=== PATIENT | male | born 1955 | race Caucasian/White ===

== ENCOUNTER 2022-01-06 13:15 | Outpatient (CLI) | payer MEDICARE | END 2022-01-06 13:16 | disposition home or self-care (01) | LOC: BICRAD 13:15 | PROVIDERS: ATTEND Internal Medicine | DX: J44.9 Chronic obstructive pulmonary disease, unspecified (principal); R05.9 Cough, unspecified | CPT/HCPCS: 71046 ==

== ENCOUNTER 2022-01-29 11:56 | Inpatient (IN) | payer MEDICARE ==
[2022-01-29] MEDS ORDERED: Diltiazem 125 MG/25 ML ONE (12:28)
[2022-01-29 12:34] LABS: #Basophils 0.1 thou/uL (0.0-0.2); #Eosinphils 0.2 thou/uL (0.0-0.7); #Lymphocytes 2.4 thou/uL (1.20-3.40); #Monocytes 0.9 thou/uL (0.11-0.59); #Neutrophils 5.4 thou/uL (1.40-6.50); %Basophils 1.4 % (0.0-1.0); %Eosinophils 1.7 % (0.0-10.0); %Monocytes 9.9 % (0.0-10.0); Hemoglobin 15.6 g/dL (14.0-18.0); Mean Corpuscular HGB CONC 32.4 g/dL (32.0-36.0); Mean Corpuscular Hemoglobin 34.9 pg (27.0-31.0); Mean Platelet Volume 8.4 fL (7.4-10.4); Platelet Count 234 thou/uL (130-400); Red Blood Cell (RBC) Count 4.47 mill/uL (4.70-6.10)
[2022-01-29 12:56] LABS: Band 1 % (5-11); Eosinophils 2 % (0-10); Lymphocytes 28 % (21-51); MDiff Complete? YES; Monocytes 10 % (0-10); Neutrophil 57 % (42-75); RBC Morphology Normal; Reactive Lymphocytes 1 % (0-10)
[2022-01-29 13:01] LABS: ALT (SGPT) 20 U/L (8-55); AST (SGOT) 20 U/L (5-34); Alkaline Phosphatase 84 U/L (40-110); Anion Gap 11 mmol/L (10-20); BUN (Urea Nitrogen) 12 mg/dL (8.4-25.7); Bilirubin, Total 0.5 mg/dL (0.2-1.2); Calc. Creatinine Clearance 0 mL/min (70-130); Calcium 9.9 mg/dL (7.8-10.44); Carbon Dioxide 25 mmol/L (23-31); Chloride 104 mmol/L (98-107); Globulin 3.1 g/dL (2.4-3.5); Glucose 113 mg/dL (80-115); Potassium 4.1 mmol/L (3.5-5.1); Protein, Total 7.1 g/dL (5.8-8.1); Sodium 136 mmol/L (136-145)
[2022-01-29] MEDS ORDERED: Enoxaparin Sodium 80 MG/0.8 ML SYRINGE ONE (14:33)
[2022-01-29] MEDS ORDERED: Acetaminophen 325 MG TAB PO PRN (17:34)
[2022-01-29] MEDS ORDERED: Diltiazem 125 MG in Sodium Chloride 0.9% 100 ML IVPB SCH (17:45)
[2022-01-29 18:32] LABS: Free T4 (Free Thyroxine) 0.96 ng/dL (0.70-1.48); Thyroid Stimulating Hormone 1.8597 uIU/mL (0.35-4.94)
[2022-01-29 20:24] VITALS: BMI 22.6
[2022-01-29] MEDS ORDERED: Albuterol Sulfate 1.25 MG/3 ML NEB NEB PRN (21:14)
[2022-01-29] MEDS: Tamsulosin HCl 0.4 MG CAP PO SCH (21:51)
[2022-01-29] MEDS: Albuterol Sulfate 1.25 MG/3 ML NEB NEB SCH (23:00)
[2022-01-29] MEDS: Mometasone 200 MCG/Formoterol 5 MCG 120 PUFF INHALER INH SCH (23:00)
[2022-01-30 05:30] LABS: #Basophils 0.1 thou/uL (0.0-0.2); #Eosinphils 0.3 thou/uL (0.0-0.7); #Lymphocytes 3.9 thou/uL (1.20-3.40); #Monocytes 0.9 thou/uL (0.11-0.59); #Neutrophils 5.4 thou/uL (1.40-6.50); %Basophils 1.1 % (0.0-1.0); %Eosinophils 2.7 % (0.0-10.0); %Lymphocytes 37.1 % (21.0-51.0); %Monocytes 8.3 % (0.0-10.0); %Neutrophils 50.8 % (42.0-75.0); Hemoglobin 14.8 g/dL (14.0-18.0); Mean Corpuscular Hemoglobin 35.4 pg (27.0-31.0); Mean Platelet Volume 8.8 fL (7.4-10.4); Platelet Count 213 thou/uL (130-400); RBC Distribution Width 13.1 % (11.5-14.5); Red Blood Cell (RBC) Count 4.19 mill/uL (4.70-6.10); White Blood Cell (WBC) Count 10.5 thou/uL (4.8-10.8)
[2022-01-30 05:50] LABS: Anion Gap 12 mmol/L (10-20); BUN (Urea Nitrogen) 16 mg/dL (8.4-25.7); Calc. Creatinine Clearance 124 mL/min (70-130); Calcium 9.4 mg/dL (7.8-10.44); Carbon Dioxide 23 mmol/L (23-31); Chloride 108 mmol/L (98-107); Glucose 99 mg/dL (80-115); Potassium 3.8 mmol/L (3.5-5.1); Sodium 139 mmol/L (136-145)
[2022-01-30] MEDS: Mometasone 200 MCG/Formoterol 5 MCG 120 PUFF INHALER INH SCH ×2 (07:25→19:35)
[2022-01-30] MEDS: Albuterol Sulfate 1.25 MG/3 ML NEB NEB SCH (07:26)
[2022-01-30] MEDS ORDERED: Digoxin 0.5 MG/2 ML AMP SLOW IVP SCH ×2 (11:00→14:45)
[2022-01-30] MEDS: Lactated Ringer's 1,000 ML IV SCH (11:19)
[2022-01-30 14:33] LABS: SARS-CoV-2 PCR by NAA Not Detected (NotDetected)
[2022-01-30] MEDS ORDERED: Amiodarone 150 MG in Dextrose 5% in Water 100 ML IVPB SCH (15:00)
[2022-01-30] MEDS: Amiodarone 450 MG in Dextrose 5% in Water 250 ML IVPB SCH (16:49)
[2022-01-30] MEDS ORDERED: Enoxaparin Sodium 80 MG/0.8 ML SYRINGE SC SCH (21:00)
[2022-01-30] MEDS: Tamsulosin HCl 0.4 MG CAP PO SCH (21:17)
[2022-01-31] MEDS: Amiodarone 450 MG in Dextrose 5% in Water 250 ML IVPB SCH (03:00)
[2022-01-31 04:41] LABS: #Basophils 0.1 thou/uL (0.0-0.2); #Eosinphils 0.3 thou/uL (0.0-0.7); #Lymphocytes 3.8 thou/uL (1.20-3.40); #Neutrophils 6.3 thou/uL (1.40-6.50); %Basophils 0.9 % (0.0-1.0); %Eosinophils 2.7 % (0.0-10.0); %Lymphocytes 33.3 % (21.0-51.0); %Monocytes 8.6 % (0.0-10.0); %Neutrophils 54.5 % (42.0-75.0); Hemoglobin 13.8 g/dL (14.0-18.0); Mean Corpuscular Hemoglobin 35.1 pg (27.0-31.0); Mean Platelet Volume 8.4 fL (7.4-10.4); Platelet Count 201 thou/uL (130-400); RBC Distribution Width 12.9 % (11.5-14.5); Red Blood Cell (RBC) Count 3.92 mill/uL (4.70-6.10); White Blood Cell (WBC) Count 11.5 thou/uL (4.8-10.8)
[2022-01-31] MEDS: Lactated Ringer's 1,000 ML IV SCH (05:00)
[2022-01-31 05:07] LABS: Anion Gap 12 mmol/L (10-20); BUN (Urea Nitrogen) 14 mg/dL (8.4-25.7); Calc. Creatinine Clearance 124 mL/min (70-130); Calcium 8.8 mg/dL (7.8-10.44); Carbon Dioxide 22 mmol/L (23-31); Chloride 108 mmol/L (98-107); Glucose 101 mg/dL (80-115); Magnesium 1.9 mg/dL (1.6-2.6); Potassium 3.7 mmol/L (3.5-5.1); Sodium 138 mmol/L (136-145)
[2022-01-31] MEDS: Mometasone 200 MCG/Formoterol 5 MCG 120 PUFF INHALER INH SCH (07:14)
[2022-01-31] MEDS ORDERED: Dronedarone HCl 400 MG TAB PO SCH (08:00)
[2022-01-31] MEDS ORDERED: Apixaban 5 MG TAB PO SCH (09:00)
[2022-01-31 11:40] VITALS: BP 111/63; TEMP 97.8
== END 2022-01-31 14:40 | disposition home or self-care (01) | DRG 310 ==
LOC: ERS 11:56 → ERHOLD 16:28 → 2NO 20:02
PROVIDERS: ADMIT Internal Medicine; ATTEND Hospitalist
DX: I48.92 Unspecified atrial flutter (principal); Z20.822 Contact with and (suspected) exposure to COVID-19; J44.9 Chronic obstructive pulmonary disease, unspecified; F17.210 Nicotine dependence, cigarettes, uncomplicated; Z79.51 Long term (current) use of inhaled steroids; Z79.899 Other long term (current) drug therapy
CPT/HCPCS: 36415; 71045; 80048; 80053; 83735; 84439; 84443; 84484; 85025; 93005; 93010; 93306; 94640; 94760; 96365; 96366; 96372; J0282; J1160; J1650; J3490; J7070; J7120; J7620; U0003; U0005

== ENCOUNTER 2023-10-20 11:37 | Outpatient (CLI) | payer MEDICARE | END 2023-10-20 11:38 | disposition home or self-care (01) | LOC: BICRAD 11:37 | PROVIDERS: ATTEND Internal Medicine | DX: J18.9 Pneumonia, unspecified organism (principal); R05.9 Cough, unspecified; J98.4 Other disorders of lung | CPT/HCPCS: 71046 ==